=== PATIENT | male | born 1980 | race Two or more races ===

== ENCOUNTER 2019-11-15 17:04 | Emergency (ER) | payer SELFPAY ==
[~2019-11-15] VITALS: Ht 165.1 cm; Wt 99.8 kg
[2019-11-15 17:15] VITALS: BP 116/55
== END 2019-11-15 19:23 | disposition home or self-care (01) ==
LOC: ER 17:04
DX: S93.602A Unspecified sprain of left foot, initial encounter (principal); W08.XXXA Fall from other furniture, initial encounter; Y93.89 Activity, other specified; Y92.89 Other specified places as the place of occurrence of the external cause; Y99.8 Other external cause status
CPT/HCPCS: 73630

== ENCOUNTER 2019-12-29 19:04 | Inpatient (IN) | payer MEDICAID, OTHER ==
[~2019-12-29] VITALS: Ht 165.1 cm; Wt 103.2 kg
[2019-12-29] MEDS ORDERED: PANTOPRAZOLE 40 MG/10 ML VIAL INJ IV STA (20:21)
[2019-12-29] MEDS ORDERED: ONDANSETRON HCL 4 MG/2 ML VIAL IV ONE (20:30)
[2019-12-29] MEDS ORDERED: PANTOPRAZOLE 40mg/50ML NS AE 50 ML IV ONE (22:15)
[2019-12-29 22:40] LABS: Eosinophils # (auto) 0 10 ^3/uL (0-0.8); Nucleated Red Blood Cells % 0.1 %; Red Cell Distribution Width 19.9 % (11.8-14.3)
[2019-12-29 22:42] LABS: Basophils # (auto) 0 10 ^3/uL (0-0.2); Basophils % (auto) 0.3 % (0.0-2.0); Eosinophils % (auto) 0.2 % (0.0-7.0); Hematocrit 23.3 % (41.0-53.0); Hemoglobin 7.6 g/dL (13.5-17.5); Lymphocytes # (auto) 1.4 10 ^3/uL (0.4-5.4); Lymphocytes % (auto) 9.6 % (10.0-50.0); Mean Corpuscular Hemoglobin 27.3 pg (28.0-32.0); Mean Corpuscular Hgb Conc. 32.7 g/dL (32.0-36.0); Mean Corpuscular Volume 83.6 fL (80.0-100.0); Monocytes # (auto) 1.3 10 ^3/uL (0-1.3); Monocytes % (auto) 8.8 % (0.0-12.0); Neutrophils # (auto) 11.7 10 ^3/uL (1.6-8.6); Neutrophils % (auto) 81.1 % (37.0-80.0); Platelet Count (auto) 157 10^3/uL (140-450); Red Blood Cells 2.79 10^6/uL (4.5-5.90); White Blood Cell 14.5 10^3/uL (4.4-10.8)
[2019-12-29] MEDS ORDERED: PANTOPRAZOLE 40 MG/10 ML VIAL INJ IV ONE (22:46)
[2019-12-29 22:52] LABS: Urine Bacteria NONE SEEN /hpf (None Seen); Urine Blood Negative /uL (Negative); Urine Hyaline Cast MOD /lpf (0 - 2); Urine Mucus FEW (None Seen); Urine Specific Gravity 1.027 (1.001-1.035); Urine WBC 1 /hpf (0 - 3)
[2019-12-29 22:58] LABS: Albumin 2.1 g/dL (3.4-5.0); Anion Gap 6 (5-15); Blood Alcohol < 3.0 mg/dL (0-5); Blood Urea Nitrogen 13 mg/dL (7-18); Calcium 7.3 mg/dL (8.5-10.1); Carbon Dioxide 25 mmol/L (21-32); Chloride 106 mmol/L (98-107); Glucose 133 mg/dL (74-106); Potassium 4.2 mmol/L (3.5-5.1); Sodium 137 mmol/L (136-145)
[2019-12-29 23:00] LABS: INR 1.66 (0.9-1.15); Partial Thromboplastin Time 25.4 sec (23.64-32.05)
[2019-12-29 23:01] LABS: Alcohol, Urine < 3.0 mg/dL (0-10); Amphetamine Screen, Urine NEGATIVE (NEGATIVE); Barbiturate Scree,Urine NEGATIVE (NEGATIVE); Benzodiazephine Screen, Urine NEGATIVE (NEGATIVE); Cannabinoid Screen, Urine NEGATIVE (NEGATIVE); Cocaine Screen, Urine NEGATIVE (NEGATIVE); Opiate Scree,Urine NEGATIVE (NEGATIVE)
[2019-12-29 23:03] LABS: Phencyclidine Screen, Urine NEGATIVE (NEGATIVE)
[2019-12-29 23:06] LABS: Alanine Aminotransferase 31 U/L (16-61); Alkaline Phosphatase 132 U/L (45-117); Aspartate Aminotransferase 78 U/L (15-37); BUN/Creatinine Ratio 16.7; Bilirubin, Total 3.2 mg/dL (0.2-1.0); GFR African American 144 mL/min; GFR Non-African American 119 mL/min; Total Protein 6.4 g/dL (6.4-8.2)
[2019-12-30] MEDS ORDERED: DOCUSATE SOD 100 MG CAP PO PRN (02:30)
[2019-12-30] MEDS ORDERED: HYDROcodone-ACET 5/325MG TAB PO PRN (02:30)
[2019-12-30] MEDS ORDERED: MORPHINE SULF INJ 2 MG/ML SYRINGE 1ML IV PRN (02:30)
[2019-12-30] MEDS ORDERED: ONDANSETRON HCL 4 MG/2 ML VIAL IV PRN (02:30)
[2019-12-30] MEDS: PANTOPRAZOLE 40 MG/10 ML VIAL INJ IV SCH ×3 (03:15→22:00)
[2019-12-30] MEDS: LORazepam 0.5 MG TAB PO PRN ×2 (03:15→13:02)
[2019-12-30] MEDS: SODIUM CHLORIDE 0.9% 1,000 ML IV SCH ×2 (03:30→11:38)
[2019-12-30] MEDS: metroNIDAZOLE 500MG/100ML 100 ML IV SCH ×4 (03:30→18:29)
[2019-12-30 06:42] LABS: Basophils # (auto) 0.1 10 ^3/uL (0-0.2); Monocytes # (auto) 1.1 10 ^3/uL (0-1.3); Nucleated Red Blood Cells % 0.1 %; Platelet Count (auto) 156 10^3/uL (140-450); Red Cell Distribution Width 19.9 % (11.8-14.3)
[2019-12-30 06:46] LABS: Eosinophils # (auto) 0.1 10 ^3/uL (0-0.8); Eosinophils % (auto) 1.1 % (0.0-7.0); Hematocrit 22.6 % (41.0-53.0); Hemoglobin 7.2 g/dL (13.5-17.5); Lymphocytes # (auto) 1.8 10 ^3/uL (0.4-5.4); Lymphocytes % (auto) 15.1 % (10.0-50.0); Mean Corpuscular Hgb Conc. 31.9 g/dL (32.0-36.0); Mean Corpuscular Volume 84.5 fL (80.0-100.0); Monocytes % (auto) 9.5 % (0.0-12.0); Neutrophils # (auto) 8.8 10 ^3/uL (1.6-8.6); Neutrophils % (auto) 73.3 % (37.0-80.0); Red Blood Cells 2.67 10^6/uL (4.5-5.90); White Blood Cell 12.1 10^3/uL (4.4-10.8)
[2019-12-30 06:48] LABS: Calcium 7.4 mg/dL (8.5-10.1)
[2019-12-30 06:54] LABS: BUN/Creatinine Ratio 19.7
[2019-12-30] MEDS: cefTRIAXone 1GM/50ML D5W 50 ML IV SCH (10:48)
[2019-12-30] MEDS: PANTOPRAZOLE 40mg/50ML NS AE 50 ML IV SCH ×3 (10:49→20:26)
[2019-12-30] MEDS: OCTREOTIDE ACETATE 500 MCG in SODIUM CHL 0.9% 99 ML IV SCH (11:07)
[2019-12-30 12:26] VITALS: BP 101/65
[2019-12-30 12:45] VITALS: BP 99/54
[2019-12-30] MEDS ORDERED: FLUMAZENIL 0.1 MG/ML INJ 10ML MDV IV ONE (14:43)
[2019-12-30] MEDS ORDERED: NALOXONE HCL 0.4 MG/ML VIAL ONE (14:43)
[2019-12-30] MEDS ORDERED: SODIUM CHLORIDE LOCK 10 ML ONE (14:43)
[2019-12-30] MEDS ORDERED: LIDOCAINE VISCOUS 2% 15ML UD ONE (14:44)
[2019-12-30] MEDS ORDERED: fentaNYL CITRATE 100 MCG/2 ML VL ONE (14:44)
[2019-12-30] MEDS ORDERED: MIDAZOLAM HCL 5 MG/ML-1ML VIAL ONE (14:44)
[2019-12-30] MEDS: diphenhdrAMINE HCL 50 MG/1 ML VL ONE ×2 (15:24→15:27)
[2019-12-30 16:25] VITALS: BP 91/54
[2019-12-30] MEDS: FOLIC ACID 1 MG, MULTIPLE VITAMIN 10 ML, MAGNESIUM SULF SDV 50% 8 MEQ, THIAMINE INJ 100... INJ SCH ×5 (16:57)
[2019-12-30 17:16] LABS: Basophils # (auto) 0.1 10 ^3/uL (0-0.2); Basophils % (auto) 1.4 % (0.0-2.0); Eosinophils # (auto) 0.2 10 ^3/uL (0-0.8); Hemoglobin 7.3 g/dL (13.5-17.5); Lymphocytes # (auto) 1.4 10 ^3/uL (0.4-5.4); Lymphocytes % (auto) 15.3 % (10.0-50.0); Monocytes # (auto) 0.9 10 ^3/uL (0-1.3); Nucleated Red Blood Cells % 0.1 %; White Blood Cell 9.2 10^3/uL (4.4-10.8)
[2019-12-30 17:17] LABS: Eosinophils % (auto) 1.9 % (0.0-7.0); Hematocrit 22.9 % (41.0-53.0); Mean Corpuscular Hemoglobin 27.9 pg (28.0-32.0); Mean Corpuscular Volume 87.4 fL (80.0-100.0); Monocytes % (auto) 9.5 % (0.0-12.0); Neutrophils # (auto) 6.6 10 ^3/uL (1.6-8.6); Neutrophils % (auto) 71.9 % (37.0-80.0); Platelet Count (auto) 120 10^3/uL (140-450); Red Blood Cells 2.62 10^6/uL (4.5-5.90)
[2019-12-30] MEDS: SUCRALFATE 1 GM/10 ML ORAL SUSP PO SCH (17:24)
[2019-12-31] VITALS (18 sets, daily range): BP systolic 88–125; BP diastolic 52–72
[2019-12-31] MEDS: OCTREOTIDE ACETATE 500 MCG in SODIUM CHL 0.9% 99 ML IV SCH ×3 (00:02→16:46)
[2019-12-31] MEDS ORDERED: SODIUM CHLORIDE 0.9% 1,000 ML IV ONE (00:11)
[2019-12-31] MEDS: metroNIDAZOLE 500MG/100ML 100 ML IV SCH (00:11)
[2019-12-31] MEDS ORDERED: NOREPINEPHRINE 8 MG/250ML KIT 250 ML IV SCH (00:57)
[2019-12-31] MEDS ORDERED: NOREPINEPHRINE 8 MG/250ML KIT 250 ML IV ONE (01:04)
[2019-12-31] MEDS: PANTOPRAZOLE 40mg/50ML NS AE 50 ML IV SCH ×3 (02:34→11:30)
[2019-12-31] MEDS: cefTRIAXone 1GM/50ML D5W 50 ML IV SCH (10:00)
[2019-12-31 10:29] LABS: Basophils # (auto) 0.1 10 ^3/uL (0-0.2); Eosinophils # (auto) 0.8 10 ^3/uL (0-0.8); Nucleated Red Blood Cells % 0.3 %
[2019-12-31 10:30] LABS: Basophils % (auto) 0.5 % (0.0-2.0); Eosinophils % (auto) 5.7 % (0.0-7.0); Hematocrit 24.8 % (41.0-53.0); Hemoglobin 7.8 g/dL (13.5-17.5); Lymphocytes # (auto) 1.8 10 ^3/uL (0.4-5.4); Lymphocytes % (auto) 12.8 % (10.0-50.0); Mean Corpuscular Hgb Conc. 31.5 g/dL (32.0-36.0); Mean Corpuscular Volume 88.7 fL (80.0-100.0); Monocytes # (auto) 1.3 10 ^3/uL (0-1.3); Monocytes % (auto) 9.2 % (0.0-12.0); Neutrophils # (auto) 9.9 10 ^3/uL (1.6-8.6); Neutrophils % (auto) 71.8 % (37.0-80.0); Platelet Count (auto) 173 10^3/uL (140-450); Red Blood Cells 2.79 10^6/uL (4.5-5.90); Red Cell Distribution Width 18.2 % (11.8-14.3); White Blood Cell 13.8 10^3/uL (4.4-10.8)
[2019-12-31 10:45] LABS: Albumin 1.9 g/dL (3.4-5.0); Calcium 6.7 mg/dL (8.5-10.1); Potassium 3.6 mmol/L (3.5-5.1)
[2019-12-31 10:51] LABS: BUN/Creatinine Ratio 14.1; Bilirubin, Total 3.6 mg/dL (0.2-1.0); Total Protein 5.7 g/dL (6.4-8.2)
[2019-12-31] MEDS: PANTOPRAZOLE 40 MG/10 ML VIAL INJ IV SCH ×2 (11:30→21:54)
[2019-12-31] MEDS: SUCRALFATE 1 GM/10 ML ORAL SUSP PO SCH ×5 (11:30→21:55)
--- NOTE | 2019-12-31 12:36 | NUR ---
Telemetry admit from ER: TAWANNA SHAH admitted to Telemetry unit after NO SBAR received. Patient oriented to BELEN STAFFORD RN primary RN, unit, room, bed, and unit policies regarding patient care and visiting hours. Patient now on continuous telemetry monitoring, tele box # [id number] and telemetry reading on arrival to unit is SR. Patient weighed by bedscale and encouraged to call if they need something. All questions and concerns addressed, patient verbalized understanding. Addendum: 12/31/19 at 1718 by BELEN STAFFORD RN RN CORRECT ADMISSION TIME IS 1436
[2019-12-31] MEDS: FOLIC ACID 1 MG, MULTIPLE VITAMIN 10 ML, MAGNESIUM SULF SDV 50% 8 MEQ, THIAMINE INJ 100... INJ SCH ×5 (12:40)
--- NOTE | 2019-12-31 16:00 | NUR ---
BLOOD PRESSURE AT THIS TIME IS 88/[address] WEBSTER, NEW ORDERS RECEIVED. WILL CONTINUE TO MONITOR.
[2019-12-31] MEDS ORDERED: SODIUM CHLORIDE 0.9% 500 ML IV ONE ×2 (16:15→17:45)
--- NOTE | 2019-12-31 17:05 | NUR ---
BOLUS COMPLETE BP AT THIS TIME 102/60 WILL CONTINUE TO MONITOR.
--- NOTE | 2019-12-31 17:31 | NUR ---
HOSPITALIST PAGED AT THIS TIME. AWAITING CALL BACK.
--- NOTE | 2019-12-31 18:24 | NUR ---
Received call from hospitalist. New orders received, read back and verified.
--- NOTE | 2019-12-31 18:27 | NUR ---
PAGED HOUSE SUP REGARDING NEW ORDERS. SPOKE WITH CHARGE NURSE REGARDING NEW ORDERS.
--- NOTE | 2019-12-31 18:56 | NUR ---
CLOSING NOTE: Patient resting in bed. No S/S of distress or pain at this time. Care endorsed to NOC RN
--- NOTE | 2019-12-31 19:05 | NUR ---
CLOSING NOTE: Patient resting in bed. No S/S of distress or pain at this time. Patient to be moved from room 292A to 283. Covid swab to be sent to lab by NOC RN Care endorsed to NOC RN
--- NOTE | 2019-12-31 19:10 | NUR ---
Opening note Assumed care of patient. Patient alert and orientated x4. No SOB or distress noted. Patient denies any pain at this time. Patient is isolation room 283. Bed locked in lowest position. Side rails up x2. Blood pressure is 110/69. HR 89. NSR. Reassessed temperature 99.6 All of Patients questions answered at this time. Beninese speaking patient. Call light within reach. Will continue to monitor.
[2019-12-31 19:30] LABS: Hematocrit 22.1 % (41.0-53.0); Hemoglobin 7.4 g/dL (13.5-17.5)
[2019-12-31] MEDS ORDERED: cefTRIAXone 1GM/50ML D5W 50 ML IV ONE (19:30)
--- NOTE | 2019-12-31 19:45 | NUR ---
Spoke to family Spoke to patients Kiya. All questions answered. She states she will call back to find out results of covid rule out. Will continue to monitor patient.
--- NOTE | 2019-12-31 20:01 | NUR ---
Paged hospitalist Awaiting hospitalist page back. Will continue to monitor.
--- NOTE | 2019-12-31 20:10 | NUR ---
Hospitalist paged back. Spoke to hospitalist regarding patients hemoglobin 7.4. Informed hospitalist Earlier today at 0800 patient received 2 units of blood in the ER. hemoglobin was 7.8 at 1000 am this morning. Blood drawn at 1750 was hemoglobin 7.4. Patient has CBC draw the following morning Hospitalist said no new orders at this time. Will continue to monitor patient.
--- NOTE | 2019-12-31 20:45 | NUR ---
Covid test collected Explained procedure of collecting covid specimen to patient. Patient verbalized understanding and consented to take test. Patient tolerated well. Will send to lab. Will continue to monitor patient.
--- NOTE | 2019-12-31 21:00 | NUR ---
Covid test sent to lab Sent Specimen results of in house covid test to Laboratory. Will continue to monitor patient.
--- NOTE | 2019-12-31 22:43 | NUR ---
administered tylenol Patient has temp of 100.6 not 102. gave tylenol . will reassess patient and continue to monitor.
[2019-12-31] MEDS: ACETAMINOPHEN 325 MG TAB PO PRN (22:47)
--- NOTE | 2019-12-31 23:43 | NUR ---
temperature reassessment. patient states no chills, he says he feels fine. temp is 99.6. Will continue to monitor patient.
[2020-01-01] MEDS: OCTREOTIDE ACETATE 500 MCG in SODIUM CHL 0.9% 99 ML IV SCH ×3 (03:47→21:18)
[2020-01-01 05:00] VITALS: BP 102/65
--- NOTE | 2020-01-01 05:00 | NUR ---
IV removal IV DC'd with clean sterile technique, catheter fully intact. Pressure dressing applied to site. Patient tolerated well.
[2020-01-01] MEDS: SUCRALFATE 1 GM/10 ML ORAL SUSP PO SCH ×4 (06:07→21:18)
[2020-01-01 06:23] LABS: Basophils # (auto) 0.1 10 ^3/uL (0-0.2); Eosinophils # (auto) 0.3 10 ^3/uL (0-0.8); Hemoglobin 7.5 g/dL (13.5-17.5); Lymphocytes # (auto) 1.2 10 ^3/uL (0.4-5.4); Monocytes # (auto) 0.6 10 ^3/uL (0-1.3); Neutrophils # (auto) 4.1 10 ^3/uL (1.6-8.6)
[2020-01-01 06:26] LABS: Eosinophils % (auto) 4.9 % (0.0-7.0); Hematocrit 22.6 % (41.0-53.0); Mean Corpuscular Hemoglobin 29.6 pg (28.0-32.0); Mean Corpuscular Hgb Conc. 33.2 g/dL (32.0-36.0); Monocytes % (auto) 9.8 % (0.0-12.0); Neutrophils % (auto) 64.3 % (37.0-80.0); Nucleated Red Blood Cells % 0.9 %; Platelet Count (auto) 113 10^3/uL (140-450); Red Blood Cells 2.54 10^6/uL (4.5-5.90); Red Cell Distribution Width 18.1 % (11.8-14.3); White Blood Cell 6.4 10^3/uL (4.4-10.8)
[2020-01-01 06:41] LABS: Potassium 3.6 mmol/L (3.5-5.1)
[2020-01-01 06:58] LABS: Albumin 1.9 g/dL (3.4-5.0); BUN/Creatinine Ratio 10.2; Bilirubin, Total 2.9 mg/dL (0.2-1.0); Calcium 6.8 mg/dL (8.5-10.1); Total Protein 5.7 g/dL (6.4-8.2)
--- NOTE | 2020-01-01 07:25 | NUR ---
closing note Endorsed care to day shift RN. Patient is in bed watching tv. no distress or sob noted.
[2020-01-01 08:00] VITALS: BP 116/69
[2020-01-01 09:00] VITALS: BP 111/69
[2020-01-01 09:32] LABS: Hepatitis B Surface Antibody Negative
[2020-01-01 10:08] LABS: Hepatitis A Total Antibody Positive
[2020-01-01] MEDS: cefTRIAXone 1GM/50ML D5W 50 ML IV SCH (10:38)
[2020-01-01] MEDS: PANTOPRAZOLE 40 MG/10 ML VIAL INJ IV SCH ×2 (10:39→21:18)
[2020-01-01 10:45] LABS: Hepatitis B Surface Antigen Negative (Negative)
[2020-01-01 10:46] LABS: Hepatitis B Core Total AB Negative; Hepatitis C Antibody Negative (Negative)
[2020-01-01] MEDS: Ensure HIGH Protein Chocolate 8oz Bottle PO SCH ×2 (12:00→18:00)
[2020-01-01] MEDS ORDERED: PHYTONADIONE(VitK) ORAL Susp 10mg/10ml(1mg/ml) PO ONE (12:00)
[2020-01-01 13:00] VITALS: BP 122/67
[2020-01-01] MEDS: metroNIDAZOLE 500MG/100ML 100 ML IV SCH ×2 (14:00→21:18)
[2020-01-01] MEDS: FOLIC ACID 1 MG, MULTIPLE VITAMIN 10 ML, MAGNESIUM SULF SDV 50% 8 MEQ, THIAMINE INJ 100... INJ SCH ×5 (16:15)
[2020-01-01 17:00] VITALS: BP 113/68
[2020-01-01 18:56] LABS: Hematocrit 26.5 % (41.0-53.0); Hemoglobin 8.5 g/dL (13.5-17.5)
--- NOTE | 2020-01-01 19:30 | NUR ---
Opening Shift Note Assumed care of patient, awake and alert. Blood transfusion on going. No S/S of distress/SOB or pain. Instructed on POC and to call for assist PRN, will continue to monitor for changes Q1hr and PRN. Addendum: 01/03/20 at 0424 by Radha Boucher RN wrong date
--- NOTE | 2020-01-01 19:30 | NUR ---
Opening Shift Note Assumed care of patient, awake and alert. No S/S of distress/SOB or pain. Instructed on POC and to call for assist PRN, will continue to monitor for changes Q1hr and PRN.
--- NOTE | 2020-01-01 20:33 | NUR ---
Blood transfusion ended. No sign of blood transfusion reaction. Denies pain or distress. Vital signs stable Addendum: 01/03/20 at 0423 by Radha Boucher RN wrong date
[2020-01-01] MEDS: ACETAMINOPHEN 325 MG TAB PO PRN (21:37)
[2020-01-01 22:00] VITALS: BP_SYST 111; BP_SYST 113; BP_DIAS 66; BP_DIAS 67
--- NOTE | 2020-01-01 23:32 | NUR ---
Dr. Mignon Norman called checking pt's status. pt can go home tomorrow if no active bleeding.pt denies active bleeding
[2020-01-02] VITALS (9 sets, daily range): BP systolic 102–118; BP diastolic 60–80
[2020-01-02 05:29] LABS: Basophils # (auto) 0.1 10 ^3/uL (0-0.2); Basophils % (auto) 2.1 % (0.0-2.0); Eosinophils # (auto) 0.3 10 ^3/uL (0-0.8); Eosinophils % (auto) 5.6 % (0.0-7.0); Hematocrit 23.5 % (41.0-53.0); Hemoglobin 7.7 g/dL (13.5-17.5); Lymphocytes # (auto) 1.1 10 ^3/uL (0.4-5.4); Lymphocytes % (auto) 17.7 % (10.0-50.0); Mean Corpuscular Hemoglobin 29.5 pg (28.0-32.0); Mean Corpuscular Hgb Conc. 32.9 g/dL (32.0-36.0); Mean Corpuscular Volume 89.8 fL (80.0-100.0); Monocytes # (auto) 0.6 10 ^3/uL (0-1.3); Monocytes % (auto) 9.1 % (0.0-12.0); Neutrophils % (auto) 65.5 % (37.0-80.0); Nucleated Red Blood Cells % 0.3 %; Platelet Count (auto) 130 10^3/uL (140-450); Red Blood Cells 2.62 10^6/uL (4.5-5.90); Red Cell Distribution Width 17.9 % (11.8-14.3); White Blood Cell 6.2 10^3/uL (4.4-10.8)
[2020-01-02 05:47] LABS: Albumin 1.9 g/dL (3.4-5.0); Potassium 3.7 mmol/L (3.5-5.1)
[2020-01-02 05:50] LABS: BUN/Creatinine Ratio 9.3; Bilirubin, Total 2.5 mg/dL (0.2-1.0); INR 1.5 (0.9-1.15); Total Protein 5.9 g/dL (6.4-8.2)
[2020-01-02] MEDS: metroNIDAZOLE 500MG/100ML 100 ML IV SCH (06:10)
[2020-01-02] MEDS: SUCRALFATE 1 GM/10 ML ORAL SUSP PO SCH ×4 (06:10→21:48)
[2020-01-02] MEDS: OCTREOTIDE ACETATE 500 MCG in SODIUM CHL 0.9% 99 ML IV SCH (06:26)
[2020-01-02] MEDS: Ensure HIGH Protein Chocolate 8oz Bottle PO SCH ×3 (08:00→18:34)
[2020-01-02] MEDS: cefTRIAXone 1GM/50ML D5W 50 ML IV SCH (09:00)
[2020-01-02] MEDS: PANTOPRAZOLE 40 MG/10 ML VIAL INJ IV SCH (10:00)
[2020-01-02] MEDS: FOLIC ACID 1 MG, MULTIPLE VITAMIN 10 ML, MAGNESIUM SULF SDV 50% 8 MEQ, THIAMINE INJ 100... INJ SCH ×5 (13:10)
[2020-01-02] MEDS ORDERED: FUROSEMIDE 40 MG/4 ML VIAL IV ONE (13:45)
[2020-01-02] MEDS ORDERED: POTASSIUM CHL 20 Meq TABLET PO ONE (13:45)
--- NOTE | 2020-01-02 14:35 | NUR ---
Est energy needs [id number] kcal (18-20 kcal/kg BW 102.9kg) Est protein needs 62-93g (1-1.5g/kg 62kg) Will reassess prn. Addendum: 01/02/20 at [address]37 [address]A RD Amended: Links added.
--- NOTE | 2020-01-02 16:00 | NUR ---
Blood infusion started with Summer RN. No s/s of distress noted.Will continue to monitor.
--- NOTE | 2020-01-02 19:30 | NUR ---
Opening Shift Note Assumed care of patient, awake and alert. Blood transfusion on going. No S/S of distress/SOB or pain. Instructed on POC and to callfor assist PRN, will continue to monitor for changes Q1hr and PRN.
--- NOTE | 2020-01-02 19:42 | NUR ---
closing shift Patient is comfortably resting in bed, blood is still infusing, no s/s of distress/sob noted/stated. Bed at lowest locked position and call light within reach. Endorsed care to NOC RN.
--- NOTE | 2020-01-02 20:33 | NUR ---
Blood transfusion ended. No sign of blood transfusion reaction. Denies pain or distress. Vital signs stable
[2020-01-02] MEDS: PANTOPRAZOLE 40 MG TAB PO SCH (21:48)
[2020-01-03 05:00] VITALS: BP 111/93
[2020-01-03] MEDS: SUCRALFATE 1 GM/10 ML ORAL SUSP PO SCH ×2 (06:35→11:30)
[2020-01-03 06:47] LABS: Basophils # (auto) 0.1 10 ^3/uL (0-0.2); Basophils % (auto) 1.6 % (0.0-2.0); Eosinophils # (auto) 0.3 10 ^3/uL (0-0.8); Eosinophils % (auto) 3.4 % (0.0-7.0); Hematocrit 29.1 % (41.0-53.0); Hemoglobin 9.7 g/dL (13.5-17.5); Lymphocytes # (auto) 1.3 10 ^3/uL (0.4-5.4); Mean Corpuscular Hemoglobin 29.5 pg (28.0-32.0); Mean Corpuscular Hgb Conc. 33.3 g/dL (32.0-36.0); Mean Corpuscular Volume 88.9 fL (80.0-100.0); Monocytes # (auto) 0.8 10 ^3/uL (0-1.3); Neutrophils # (auto) 5.7 10 ^3/uL (1.6-8.6); Nucleated Red Blood Cells % 0.2 %; Platelet Count (auto) 150 10^3/uL (140-450); Red Blood Cells 3.27 10^6/uL (4.5-5.90); Red Cell Distribution Width 18.1 % (11.8-14.3); White Blood Cell 8.2 10^3/uL (4.4-10.8)
[2020-01-03 07:09] LABS: Bilirubin, Direct 1.9 mg/dL (0-0.2)
[2020-01-03 07:12] LABS: Bilirubin, Total 2.4 mg/dL (0.2-1.0); Total Protein 6.3 g/dL (6.4-8.2)
--- NOTE | 2020-01-03 07:35 | NUR ---
Opening Shift Note Assumed care of patient, awake and alert. No S/S of distress/SOB or pain. Updated on POC and instructed to call for assistance PRN, patient verbalized understanding. Bed locked in lowest position, side rails up x2, call light within reach. Will continue to monitor for changes Q1hr and PRN.
[2020-01-03] MEDS: Ensure HIGH Protein Chocolate 8oz Bottle PO SCH (08:00)
[2020-01-03] MEDS ORDERED: SUCR1TAB22 PO (08:58)
[2020-01-03] MEDS ORDERED: MULTTAB75 PO (08:58)
[2020-01-03] MEDS ORDERED: PANT40T PO (08:58)
[2020-01-03] MEDS ORDERED: FER325T PO (08:58)
[2020-01-03 09:00] VITALS: BP 117/74
[2020-01-03] MEDS: PANTOPRAZOLE 40 MG TAB PO SCH (09:01)
[2020-01-03 11:11] VITALS: BP 117/74
--- NOTE | 2020-01-03 11:40 | NUR ---
DISCHARGE HOME Discharge instructions given as ordered with Kristie RN at bedside to translate. Encourage to follow up at discharge clinic as instructed. All questions and concerns addressed. Patient verbalized understanding. Medication reconciliation form completed and copy given to patient. IV removed with catheter intact, pressure dressing applied. Telemetry unit returned to ICU. Patient taken to front lobby via wheelchair with all personal belongings, accompanied by staff. No distress noted at time of departure.
== END 2020-01-03 11:40 | disposition home or self-care (01) ==
LOC: EDBD 19:04 → ER 19:04 → TELE 19:05 → TELE-WESTW 12-31 14:50
PROVIDERS: ADMIT Hospitalist; ATTEND Internal Medicine
PROC: 0DB88ZX Excision of Small Intestine, Via Natural or Artificial Opening Endoscopic, Diagnostic (ICD-10-PCS; 2019-12-30)
PROC: 30233N1 Transfusion of Nonautologous Red Blood Cells into Peripheral Vein, Percutaneous Approach (ICD-10-PCS; 2019-12-30)
PROC: 0DB68ZX Excision of Stomach, Via Natural or Artificial Opening Endoscopic, Diagnostic (ICD-10-PCS; principal; 2019-12-30 15:16)
DX: K76.6 Portal hypertension (principal); K29.70 Gastritis, unspecified, without bleeding; E66.9 Obesity, unspecified; D68.9 Coagulation defect, unspecified; K44.9 Diaphragmatic hernia without obstruction or gangrene; K31.89 Other diseases of stomach and duodenum; K25.6 Chronic or unspecified gastric ulcer with both hemorrhage and perforation; D62 Acute posthemorrhagic anemia; I95.9 Hypotension, unspecified; F10.20 Alcohol dependence, uncomplicated; R57.8 Other shock; I85.00 Esophageal varices without bleeding; D69.6 Thrombocytopenia, unspecified; Y90.9 Presence of alcohol in blood, level not specified; Z91.19 Patient's noncompliance with other medical treatment and regimen; Z20.828 Contact with and (suspected) exposure to other viral communicable diseases; Z68.36 Body mass index [BMI] 36.0-36.9, adult
CPT/HCPCS: 36415; 43239; 71045; 74176; 76705; 80048; 80053; 80061; 80076; 80307; 80320; 81001; 82105; 82140; 82378; 82962; 83036; 83605; 83690; 83880; 84443; 85014; 85018; 85025; 85610; 85730; 86704; 86706; 86708; 86803; 86850; 86900; 86901; 86920; 87040; 87086; 87340; C9113; G0378; J0696; J2250; J2405; J3490